=== PATIENT | female | born 1985 | race African-American/Black ===

== ENCOUNTER 2020-07-13 10:07 | Outpatient (CLI) | payer OTHER, SELFPAY ==
--- NOTE | ~2020-07-13 | US_ITS ---
EXAMINATION: US pelvic complete w TV EXAM DATE: 07/13/2020 10:39 INDICATION: Menorrhagia, excessive and frequent bleeding with menstruation cycle. TECHNIQUE: Pelvic transabdominal and transvaginal sonogram was performed. There are multiple grayscal e and Doppler images available for interpretation. There is no prior study for comparison. FINDINGS: Uterus measures 7.4 x 4.4 x 5.6 cm, and is morphologically normal. Endometrial stripe mery sures 11 mm, within normal limits. There is no free pelvic fluid. Right adnexa: The ovary measures 3.0 x 2.3 x 1.2 cm and is morphologically normal. Ovarian vascular f low confirmed. Left adnexa: The ovary measures 2.8 x 2.0 x 1.9 cm and is morphologically normal. Ovarian vascular fl ow confirmed. IMPRESSION: Unremarkable pelvic ultrasound exam. Reviewed, dictated and finalized at location B. 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
== END 2020-07-13 10:08 | disposition home or self-care (01) ==
LOC: ANHIMG 10:12
PROVIDERS: PCP Internal Medicine Infectious Disease; Visit Provider Obstetrics & Gynecology
DX: N92.0 Excessive and frequent menstruation with regular cycle (principal)
CPT/HCPCS: 76830; 76856

== ENCOUNTER 2022-04-21 14:56 | Outpatient (CLI) | payer OTHER, MEDICAID, SELFPAY ==
--- NOTE | ~2022-04-21 | US_ITS ---
Pelvic ultrasound. Clinical History: Abnormal uterine bleeding Technique: Realtime transabdominal and transvaginal scanning of the pelvis was performed. Color flow Doppler and Doppler spectral analysis were performed. Findings: The uterus is anteverted. The endometrial stripe has a thickness of 15 mm. Suggestion of s mall areas of hypoechogenicity or cystic change in the endometrial stripe. No focal myometrial mass i s identified. The right ovary measures 2.7 x 1.5 x 2.5 cm. No significant right ovarian or adnexal mass is seen. The left ovary measures 2.8 x 2.3 x 3.2 cm. No significant left ovarian or adnexal mass is seen. Vascular flow present in both ovaries on Doppler spectral analysis. There is no evidence of free fluid in the cul de sac. Impression: Somewhat heterogeneous endometrial stripe with possible small areas of cystic change. This may be rel ated to stage in the menstrual cycle. Consider follow-up exam in 6-8 weeks to reassess, as indicated. Reviewed, dictated and finalized at location [] NARY ARTIST Impression: Somewhat heterogeneous endometrial stripe with possible small areas of cystic c hange. This may be related to stage in the menstrual cycle. Consider follow-up exam in 6-8 weeks to reassess, as indicated.
== END 2022-04-21 14:57 | disposition home or self-care (01) ==
LOC: ANHIMG 15:02
PROVIDERS: PCP Internal Medicine Infectious Disease
DX: N93.9 Abnormal uterine and vaginal bleeding, unspecified (principal)
CPT/HCPCS: 76830; 76856

== ENCOUNTER 2025-01-28 10:12 | Outpatient (CLI) | payer OTHER, SELFPAY ==
--- NOTE | ~2025-01-28 | US_ITS ---
EXAMINATION: US transvaginal, 01/28/2025 10:18 CDT HISTORY: Abd pain, RLQ PAIN Comparison: None Technique: Brambila-scale sonographic images were obtained Findings: Uterus anteverted 8.5 x 4.7 x 6.1 cm. Endometrium 7 mm Right ovary 4 x 3 x 4.3 cm, no adnexal mass, normal flow, cystic lesion 4.4 x 4.4 cm Left ovary 2.7 x 2.1 x 1.9 cm, no adnexal mass, normal flow No free fluid IMPRESSION: 1. Probable functional right ovarian cyst. Follow-up suggested in 6 weeks to assess resolution Reviewed, dictated and finalized at location A. IMPRESSION: 1. Probable functional right ovarian cyst. Follow-up suggested in 6 weeks to as sess resolution
== END 2025-01-28 10:13 | disposition home or self-care (01) ==
LOC: MICIMG 10:12
PROVIDERS: PCP Internal Medicine Infectious Disease
DX: R10.31 Right lower quadrant pain (principal)
CPT/HCPCS: 76830

== ENCOUNTER 2025-01-28 10:15 | Outpatient (CLI) | payer OTHER, SELFPAY ==
--- NOTE | ~2025-01-28 | US_ITS ---
BILATERAL LOWER EXTREMITY VENOUS DUPLEX Clinical History: Lower extremity edema . Comparison: None. Technique: Grayscale, color, duplex/spectral Doppler sonography bilateral lower extremities. Findings: Bilateral common femoral, femoral, popliteal, and calf veins compressible and color Doppler patent. Normal augmentation with distal compression. No internal echoes. IMPRESSION: 1. No DVT either leg. Reviewed, dictated and finalized at location R. IMPRESSION: 1. No DVT either leg.
== END 2025-01-28 10:16 | disposition home or self-care (01) ==
LOC: MICIMG 10:15
PROVIDERS: PCP Internal Medicine Infectious Disease; Visit Provider Internal Medicine Infectious Disease
DX: R60.0 Localized edema (principal)
CPT/HCPCS: 93970